=== PATIENT | female | born 1980 | race Caucasian/White ===

== ENCOUNTER 2020-03-31 11:27 | Emergency (ER) | payer MEDICAID, SELFPAY ==
[2020-03-31 11:35] VITALS: BP 121/79; PULSE 94; RESP 18; TEMP 37.1; O2SAT 100; BMI 23.0
[2020-03-31] MEDS: Famotidine 20 MG TABLET PO (14:25)
--- NOTE | 2020-03-31 14:48 | ED.ABDPAIN ---
HPI - Abdominal Pain General Chief Complaint: Abdominal Pain Stated Complaint: nausea,stomach pain,freq urination Time Seen by Provider: 03/31/20 14:12 Source: patient Mode of arrival: ambulatory Limitations: no limitations History of Present Illness HPI narrative: Patient is a 39-year-old female with no significant past medical history complaining of upper abdominal pain and pressure with some nausea for 1 day. States she has been burping since she got to the hospital and she feels a little bit better. She states she does have an appointment with GI already scheduled in 2 days, on 04/02. She states she has ?something in her gallbladder ?which she is getting followed up on. Denies history of testing for H pylori. Has some associated nausea but no vomiting. Eating and drinking normally but states she has a feeling of fullness after she eats, for a long period of time. Denies any heartburn type symptoms. Denies fevers. Denies constipation beyond her baseline, denies diarrhea. Patient also states she had COVID back in February but that completely resolved and then she was diagnosed with bronchitis 3 days ago, is currently taking a Z-Charles. States she feels better with her breathing and cough. Related Data Previous Rx's Medication Instructions Recorded metoclopramide HCl 5 mg PO .prior to meals #14 tab 03/31/20 MDD three times a day Allergies Allergy/AdvReac Type Severity Reaction Status Date / Time No Known Allergies Allergy Verified 03/31/20 14:12 Review of Systems Review of Systems Yes all other systems are reviewed and are negative Physical Exam Vital Signs: Vital Signs: Last Vital Signs Temp 98.7 F 03/31/20 11:35 Pulse 94 03/31/20 11:35 Resp 18 03/31/20 11:35 BP 121/79 03/31/20 11:35 Pulse Ox 100 03/31/20 11:35 Body Mass Index 23.0 Const: General: cooperative, healthy appearing, comfortable, no acute distress and well developed Nutritional Appearance: average body habitus and well nourished Orientation/consciousness: patient oriented x3 HENMT: Head: Yes normal to inspection Face and sinus: Yes normal facial exam Eyes: General: appearance normal, both eyes and all related structures Pupils: Equal, round and reactive pupils present EOM: EOMs intact bilaterally Neck: Neck: Yes normal visual inspection, Yes full ROM, Yes no meningeal signs, Yes trachea midline and Yes supple Resp: Effort & Inspection: normal respiratory effort and able to speak in complete sentences Auscultation: clear to auscultation bilaterally ( very slight wheeze b/l) Cardio: Rate: regular rate Rhythm: regular rhythm Heart sounds: normal S1 and S2 GI: Inspection: Yes normal to inspection Palpation (GI): Soft to palpation and nontender Auscultation: normal bowel sounds Skin: General skin exam: no rashes or lesions noted Neuro: General: patient oriented x3 and no meningeal signs Cranial nerves: Yes Equal, round and reactive pupils present Extrem: General: Yes normal to inspection Psych: Appearance: grossly normal Course Course Course Narrative: Patient is a 39-year-old female no significant past medical history presenting with upper abdominal pain and slight nausea x1 day. Patient states she had a history of something going on with her gallbladder so she does have a follow-up appointment with GI in 2 days. EKG was normal, physical exam was normal. Give patient GI cocktail (minus lidocaine at her request), patient states feeling better after the GI cocktail and burping multiple times. Will prescribe trial of Reglan and discussed follow-up with GI as patient should also have H pylori testing. MDM - Abdominal Pain Differential Diagnosis Differential diagnosis: Likely abdominal pain, acute appendicitis, constipation, gastritis, peptic ulcer disease and small bowel obstruction ECG Data Attestation: I personally reviewed and interpreted this ECG as follows: ECG interpretation date: 03/31/20 ECG interpretation time: 15:09 Interpretation: Normal sinus rhythm with sinus arrhythmia, no acute abnormalities Discharge Plan Discharge Clinical Impression: Gastroparesis Gastritis Qualifiers: Gastritis type: unspecified gastritis Chronicity: acute Gastritis bleeding: without bleeding Qualified Code(s): K29.00 - Acute gastritis without bleeding Patient Disposition: Home, Self-Care Instructions: Gastritis (ED) Prescriptions: New metoclopramide HCl 5 mg tablet 5 mg PO .prior to meals MDD three times a day Qty: 14 RF: 0 Referrals: Michelle Del Cid MD [Physician] - 2 days (for H. Pylori testing and, as scheduled GI workup for gallbladder issues) [facility] Past Medical History Medical History Anxiety delivery delivered Panic attack Social History Social History Advance Directives: No Advance Directives Information Provided: No
--- NOTE | 2020-03-31 14:51 | ECG_ITS ---
Test Reason : CHEST TIGHTNESS Blood Pressure : / mmHG Vent. Rate : 070 BPM Atrial Rate : 070 BPM P-R Int : 156 ms QRS Dur : 088 ms QT Int : 384 ms P-R-T Axes : 066 072 057 degrees QTc Int : 414 ms Normal sinus rhythm with sinus arrhythmia Normal ECG No previous ECGs available Referred By: Mariela Okeefe Electronically Signed By:MATT RAZO MD
== END 2020-03-31 15:25 | disposition home or self-care (01) ==
PROVIDERS: Emergency Provider Emergency Medicine Emergency Medical Services; PCP Nurse Practitioner Family
DX: K31.84 Gastroparesis (principal); K29.00 Acute gastritis without bleeding
CPT/HCPCS: 93005; 99283

== ENCOUNTER 2023-10-01 08:55 | Emergency (ER) | payer OTHER, SELFPAY ==
[2023-10-01 09:06] VITALS: BP 119/79; PULSE 93; RESP 19; TEMP 36.8; O2SAT 99; BMI 27.6
[2023-10-01 09:27] LABS: MANUAL DIFF FLAG NO
[2023-10-01 09:30] LABS: Basophils Percent Auto 0.4 % (0-2); Eosinophils Absolute Auto 0.1 X10*3/uL (0.0-0.4); Eosinophils Percent Auto 1.1 % (0-4); Hematocrit 38.8 % (37.0-47.0); Imm Gran Abs Auto 0.02 X10*3/uL (0.00-0.03); Imm Gran Pct Auto 0.2 % (0.0-0.4); Lymphocytes Absolute Auto 1.9 X10*3/uL (1.2-4.9); Lymphocytes Percent Auto 19.4 % (20-40); Mean Corpuscular HGB Conc 33.5 g/dl (31.0-35.0); Mean Corpuscular Hemoglobin 31.6 pg (27.0-33.0); Mean Corpuscular Volume 94.2 fL (80.0-98.0); Mean Platelet Volume 10.5 fL (9.4-12.3); Monocytes Absolute Auto 0.5 X10*3/uL (0.1-1.2); Monocytes Percent Auto 5.4 % (2-11); Neutrophils Absolute Auto 7.1 x10*3/uL (2.0-8.3); Neutrophils Percent Auto 73.5 % (45-73); Platelet Count 219 X10*3/uL (160-400); Red Blood Count 4.12 X10*6/uL (4.20-5.50); White Blood Count 9.7 X10*3/uL (4.8-10.8)
[2023-10-01 09:47] LABS: Alanine Aminotransferase 11 U/L (0-31); Alkaline Phosphatase 41 U/L (39-117); Anion Gap 11 (12-20); Aspartate Amino Transferase 11 U/L (5-31); Bilirubin Direct 0.1 mg/dL (0.0-0.5); Bilirubin Total 0.3 mg/dL (0.0-1.0); Blood Urea Nitrogen 9 mg/dL (9-16); Calcium 9.2 mg/dL (8.4-10.2); Carbon Dioxide 24 mmol/L (22-29); Chloride 110 mmol/L (96-108); Creatinine Clr Calc Pharmacy 99.4; Estimated Glomerular Filt Rate > 60; Glucose Random 94 mg/dL (60-115); Lipase 19 U/L (8-78); Sodium 141 mmol/L (135-145); Total Protein 6.5 g/dL (6.5-8.0)
[2023-10-01 09:59] LABS: IDNOW Serial# 08D9AD1C; Strep A Nucleic Acid Negative (Negative)
[2023-10-01 10:08] LABS: Influenza A PCR NEGATIVE (Negative); Influenza B PCR NEGATIVE (Negative); Resp Syncy Virus RNA Qual PCR NEGATIVE (Negative); SARS COV2 PCR INHOUSE NEGATIVE (Negative)
--- NOTE | 2023-10-01 10:56 | ED_ITS ---
HPI - Nausea/Vomiting/Diarrhea General Chief complaint: Nausea/Vomiting/Diarrhea Stated complaint: vomiting neck pain stiffness Time Seen by Provider: 10/01/23 10:18 Source: patient Mode of arrival: ambulatory Limitations: no limitations History of Present Illness ED Provider: BENNETT LAUREANO Narrative: 43 yo female with recent strep throat notes she completed PCN for it still has some sore throat this AM vomited but now is drinking water. She denies any food exposures, diarrhea, abdominal pain, sick contacts MD elicited complaint: nausea and vomiting Onset (ago): day(s) (today 8am) Description of vomiting: food contents and watery Associated nausea: Yes Associated abdominal pain: No Location of pain: none Radiation: diffuse Severity: mild Exacerbating factors: eating Relieving factors: none Context: recent antibiotic use Associated symptoms: other (sore throat) Related Data Previous Rx's ?Medication ?Instructions ?Recorded metoclopramide HCl 5 mg tablet 5 mg PO .prior to meals #14 tabs 03/31/20 amoxicillin 875 mg-potassium 1 tab PO BID #14 tabs 10/01/23 clavulanate 125 mg tablet ondansetron 4 mg disintegrating 4 mg PO Q8H PRN nausea and 10/01/23 tablet vomiting #20 tabs Allergies Allergy/AdvReac Type Severity Reaction Status Date / Time acetaminophen [From Percocet] Allergy Rash Verified 10/01/23 09:09 codeine Allergy Unknown Verified 10/01/23 09:09 oxycodone [From Percocet] Allergy Rash Verified 10/01/23 09:09 sulfamethoxazole Allergy Unknown Verified 10/01/23 09:09 [From Bactrim] trimethoprim [From Bactrim] Allergy Unknown Verified 10/01/23 09:09 Review of Systems 2 Review of Systems: Constitutional : No Fever, No Chills, No Fatigue ENT/Mouth : pos sore throat, No Rhinorrhea Eyes: No Eye Pain, No Swelling, No Redness Cardiovascular : No Chest Pain, No SOB, No Dyspnea on Exertion Respiratory : No Cough, No Sputum Gastrointestinal : pos Nausea, pos Vomiting, No Diarrhea, No abdominal Pain Genitourinary : No Dysuria, No Urinary Frequency, No Hematuria, Musculoskeletal : No joint pain, No Myalgias, No Joint Swelling Skin : No Skin Lesions, No rash Neuro : No Weakness, No Numbness, No Dizziness, no Headache All other systems reviewed and are negative Gastrointestinal: Gastrointestinal: Reports nausea PMFSH Past Medical History Attestation statement: The following information was validated with the patient. Source: old records reviewed Medical History delivery delivered Panic attack Anxiety Social History Social History (Updated 10/01/23 @ 11:05 by Alison Gonzalez DO) Patient Tobacco Use Status: Tobacco use Unknown Advance Directives: No Advance Directives Information Provided: Yes Physical Exam 2 Vital Signs: Vital Signs: Last Vital Signs Temp 98.3 F 10/01/23 11:37 Pulse 93 10/01/23 11:37 Resp 19 10/01/23 11:37 BP 119/79 10/01/23 11:37 Pulse Ox 99 10/01/23 11:37 O2 Del Method Room Air 10/01/23 11:37 BMI result Body Mass Index 27.6 Appearance: Alert. Oriented X3. No acute distress. Eyes: Pupils equal, round and reactive to light. ENT: Pharynx erythema still with some patches tonsils symmetric uvula is midline Neck: Normal inspection. Neck supple. CVS: Normal heart rate and rhythm. Pulses normal. Respiratory: No respiratory distress. Breath sounds normal. Abdomen: Soft and nontender. Skin: Skin warm and dry. Normal skin color. Normal skin turgor. Extremities: No lower extremity edema. No calf ttp Neuro: Oriented X 3. No motor deficit. No sensory deficit. Medications Administered Discontinued Medications Generic Name Dose Route Start Last Admin Trade Name Freq PRN Reason Stop Dose Admin Cyclobenzaprine HCl 10 mg 10/01/23 10:48 10/01/23 10:54 Cyclobenzaprine Hcl 10 Mg Tablet PO 10/01/23 10:49 Not Given ONCE ONE Ondansetron HCl 4 mg 10/01/23 10:48 10/01/23 11:01 Ondansetron Odt 4 Mg Tab.Rapdis TRANSLINGU 10/01/23 10:49 4 mg ONCE ONE Administration Medical Decision Making Medical Decision Making MDM Narrative: 43 yo female no sig PMH just finished PCN for strep throat reports she had vomiting this AM and still has sore throat - denies fevers, completed all therapy. She does not want IVF, she has no meningeal signs her strep is negative and her labs are stable. At this time I offered fluids, CT of the neck but she declines will put in oral medications and DC home, given appearance of the next tonsils will repeat abx start on cephalexin Differential Diagnosis Differential Diagnoses: The differential diagnosis associated with the presentation includes REACT[employer]ELING [employer]PER[employer]OR, strep, n/v Admission/Observation Consideration of admission/observation: Escalation of care including admission/observation considered refuses fluids and further workup Lab Data MDM Lab Attestation statement: I reviewed the patient's lab results. 10/01/23 09:19 10/01/23 09:19 Labs: Lab Results 10/01/23 Range/Units 09:19 WBC 9.7 (4.8-10.8) X10*3/uL RBC 4.12 L (4.20-5.50) X10*6/uL Hgb 13.0 (12.0-16.0) g/dl Hct 38.8 (37.0-47.0) % MCV 94.2 (80.0-98.0) fL MCH 31.6 (27.0-33.0) pg MCHC 33.5 (31.0-35.0) g/dl RDW 13.0 (11.0-16.0) % Plt Count 219 (160-400) X10*3/uL MPV 10.5 (9.4-12.3) fL Immature Gran % (Auto) 0.2 (0.0-0.4) % Neut % (Auto) 73.5 H (45-73) % Lymph % (Auto) 19.4 L (20-40) % Turner % (Auto) 5.4 (2-11) % Eos % (Auto) 1.1 (0-4) % Baso % (Auto) 0.4 (0-2) % Lymph # (Auto) 1.9 (1.2-4.9) X10*3/uL Turner # (Auto) 0.5 (0.1-1.2) X10*3/uL Eos # (Auto) 0.1 (0.0-0.4) X10*3/uL Baso # (Auto) 0.0 (0.0-0.2) X10*3/uL Abs Immat Gran (auto) 0.02 (0.00-0.03) X10*3/uL Absolute Neuts (auto) 7.1 (2.0-8.3) x10*3/uL Absolute Nucleated RBC 0.000 (0.0-0.012) X10*3/uL Nucleated RBC % (auto) 0.0 (0.0-0.2) /100WBC Sodium 141 (135-145) mmol/L Potassium 4.0 (3.3-5.1) mmol/L Chloride 110 H (96-108) mmol/L Carbon Dioxide 24 (22-29) mmol/L Anion Gap 11 L (12-20) BUN 9 (9-16) mg/dL Creatinine 0.70 (0.5-1.4) mg/dL Estim Creat Clear Calc 99.4 Estimated GFR > 60 Random Glucose 94 (60-115) mg/dL Calcium 9.2 (8.4-10.2) mg/dL Total Bilirubin 0.3 (0.0-1.0) mg/dL Direct Bilirubin 0.1 (0.0-0.5) mg/dL AST 11 (5-31) U/L ALT 11 (0-31) U/L Alkaline Phosphatase 41 (39-117) U/L Total Protein 6.5 (6.5-8.0) g/dL Albumin 4.0 (3.5-5.0) g/dL Lipase 19 (8-78) U/L Influenza Type A (PCR) NEGATIVE (Negative) Influenza Type B (PCR) NEGATIVE (Negative) RSV RNA Qual (PCR) NEGATIVE (Negative) SARS-CoV-2 RNA (RT-PCR) NEGATIVE (Negative) S. pyogenes GrpA HARINDER Negative (Negative) External Record Review External record reviewed: Inpatient record Tests considered The following testing was considered but not selected: CT scan but patient refused Prescription Management I considered prescription management with: Antibiotic and Other Discharge Plan Discharge Clinical Impression: Nausea & vomiting Qualifiers: Vomiting type: unspecified Qualified Code(s): R11.2 - Nausea with vomiting, unspecified Pharyngitis Qualifiers: Pharyngitis/tonsillitis etiology: unspecified etiology Qualified Code(s): J02.9 - Acute pharyngitis, unspecified Patient Disposition: Home, Self-Care Instructions: Pharyngitis (ED), Acute Nausea and Vomiting (ED) Additional Instructions: return for worsening symptoms or concerns you declined IVF and CT scan of the neck if you change your mind you can return your strep test was negativ at this time stay hydrated, rest you still have swelling and patches on the tonsils will repeat antibiotics On a cephalosporin?antibiotic, softer bowel movements are to be expected. Call your provider if you move your bowels more than 4 times a day, your bowel movements are almost all liquid, or you get a rash.?? Prescriptions: New ondansetron 4 mg tablet,disintegrating 4 mg PO Q8H PRN (Reason: nausea and vomiting) Qty: 20 0RF amoxicillin-pot clavulanate 875-125 mg tablet 1 tab PO BID Qty: 14 0RF No Action metoclopramide HCl 5 mg tablet 5 mg PO .prior to meals MDD three times a day Qty: 14 0RF Stand Alone Forms: Work/School Release Interventions: ED Discharge Assessment Last Done: 10/01/23 11:37 Discharge Date/Time: 10/01/23 11:38 Print Language: Persian
[2023-10-01] MEDS: Ondansetron ODT 4 MG TAB.RAPDIS TRANSLINGU (11:01)
[2023-10-01 11:37] VITALS: BP 119/79; PULSE 93; RESP 19; TEMP 36.8; O2SAT 99
== END 2023-10-01 11:38 | disposition home or self-care (01) ==
PROVIDERS: Emergency Provider Emergency Medicine; PCP Nurse Practitioner Family
DX: J02.9 Acute pharyngitis, unspecified (principal); R11.2 Nausea with vomiting, unspecified; Z03.818 Encounter for observation for suspected exposure to other biological agents ruled out; F41.9 Anxiety disorder, unspecified; Z79.899 Other long term (current) drug therapy
CPT/HCPCS: 0241U; 80048; 80076; 83690; 85025; 87651; 99282; 99283

== ENCOUNTER 2024-07-25 09:02 | Outpatient (REF) | payer OTHER, SELFPAY ==
--- NOTE | ~2024-07-25 | XR_ITS ---
CLINICAL HISTORY: ACUTE COUGH --- Additional Notes or Special Instructions: WO 2 view chest x-ray. Comparison: None Findings: The lungs are adequately expanded. No focal consolidation. No effusion or pneumothorax. Cardiac and mediastinal contours are within normal limits. No acute osseous abnormality Impression: No focal consolidation. This document has been electronically signed by: Nelson Katz MD on 07/25/2024 09:37:09
== END 2024-07-25 09:03 | disposition home or self-care (01) ==
LOC: HO.XRAY 09:02
PROVIDERS: Visit Provider Physician Assistant
DX: R05.1 Acute cough (principal)
CPT/HCPCS: 71046

== ENCOUNTER → 2024-07-25 09:10 | Outpatient (BNV) | payer OTHER, SELFPAY | PROVIDERS: Visit Provider Radiology Vascular & Interventional Radiology | DX: R05.1 Acute cough (principal) | CPT/HCPCS: 71046 ==

== ENCOUNTER 2024-08-23 06:19 | Emergency (ER) | payer OTHER, SELFPAY ==
[2024-08-23 06:24] VITALS: BP 117/70; PULSE 97; RESP 20; TEMP 36; O2SAT 99; BMI 27.5
--- NOTE | 2024-08-23 08:05 | ED_ITS ---
HPI - General Adult General Chief complaint: General Medical Stated complaint: thyroid pain Time Seen by Provider: 08/23/24 08:02 Source: patient Mode of arrival: ambulatory Limitations: no limitations History of Present Illness ED Provider: Celia Caputo PA-C Related Data Previous Rx's ?Medication ?Instructions ?Recorded metoclopramide HCl 5 mg tablet 5 mg PO .prior to meals #14 tabs 03/31/20 amoxicillin 875 mg-potassium 1 tab PO BID #14 tabs 10/01/23 clavulanate 125 mg tablet ondansetron 4 mg disintegrating 4 mg PO Q8H PRN nausea and 10/01/23 tablet vomiting #20 tabs Allergies Allergy/AdvReac Type Severity Reaction Status Date / Time acetaminophen [From Percocet] Allergy Rash Verified 08/23/24 06:25 codeine Allergy Unknown Verified 08/23/24 06:25 oxycodone [From Percocet] Allergy Rash Verified 08/23/24 06:25 sulfamethoxazole Allergy Unknown Verified 08/23/24 06:25 [From Bactrim] trimethoprim [From Bactrim] Allergy Unknown Verified 08/23/24 06:25 PMFSH Past Medical History Medical History delivery delivered Panic attack Anxiety Social History Social History (Updated 10/01/23 @ 11:05 by Alison Gonzalez DO) Patient Tobacco Use Status: Tobacco use Unknown Advance Directives: No Advance Directives Information Provided: Yes Physical Exam ED Vital Signs: Vital Signs - 24 hr 08/23/24 06:24 Temperature 96.8 F Pulse Rate 97 Respiratory Rate 20 Blood Pressure 117/70 Pulse Oximetry 99 Oxygen Delivery Method Room Air BMI result Body Mass Index 27.5 Discharge Plan Discharge Prescriptions: No Action metoclopramide HCl 5 mg tablet 5 mg PO .prior to meals MDD three times a day Qty: 14 0RF ondansetron 4 mg tablet,disintegrating 4 mg PO Q8H PRN (Reason: nausea and vomiting) Qty: 20 0RF amoxicillin-pot clavulanate 875-125 mg tablet 1 tab PO BID Qty: 14 0RF Print Language: Greek
== END 2024-08-23 08:26 | disposition left against medical advice (07) ==
PROVIDERS: Emergency Provider Emergency Medicine
DX: E06.9 Thyroiditis, unspecified (principal)
CPT/HCPCS: 99281

== ENCOUNTER 2024-11-13 12:52 | Emergency (ER) | payer OTHER, SELFPAY ==
--- NOTE | ~2024-11-13 | XR_ITS ---
CLINICAL HISTORY: cough, sOB Chest Radiographs, 2 views Comparison: 07/25/24 Findings: No cardiomegaly. Normal mediastinal contours. No pneumothorax. 1.3 cm left lower lung zone opacity seen only on the PA view is likely a prominent nipple shadow. No pleural effusion. Normal upper abdomen. No acute fracture. Impression: No acute findings. This document has been electronically signed by: Michelle Narayan MD on 11/13/2024 13:20:50
[2024-11-13 12:54] VITALS: BP 135/67; PULSE 95; RESP 16; TEMP 37.1; O2SAT 98; BMI 27.8
--- NOTE | 2024-11-13 12:55 | ECG_ITS ---
Test Reason : SOB Blood Pressure : */* mmHG Vent. Rate : 96 BPM Atrial Rate : 96 BPM P-R Int : 158 ms QRS Dur : 76 ms QT Int : 336 ms P-R-T Axes : 57 54 41 degrees QTcB Int : 424 ms Normal sinus rhythm Cannot rule out Anterior infarct , age undetermined Abnormal ECG When compared with ECG of 31-Mar-2020 15:03, No significant change was found Referred By: Celia Caputo Electronically Signed By: Armando Gonzalez
--- NOTE | 2024-11-13 12:55 | ED.GENADULT ---
HPI - General Adult General Chief complaint: Dyspnea Stated complaint: Sob Related Data Previous Rx's ?Medication ?Instructions ?Recorded metoclopramide HCl 5 mg tablet 5 mg PO .prior to meals #14 tabs 03/31/20 amoxicillin 875 mg-potassium 1 tab PO BID #14 tabs 10/01/23 clavulanate 125 mg tablet ondansetron 4 mg disintegrating 4 mg PO Q8H PRN nausea and 10/01/23 tablet vomiting #20 tabs Allergies Allergy/AdvReac Type Severity Reaction Status Date / Time acetaminophen (From Percocet) Allergy Rash Verified 11/13/24 12:57 codeine Allergy Unknown Verified 11/13/24 12:57 oxycodone (From Percocet) Allergy Rash Verified 11/13/24 12:57 sulfamethoxazole (From Allergy Unknown Verified 11/13/24 12:57 Bactrim) trimethoprim (From Bactrim) Allergy Unknown Verified 11/13/24 12:57 PMFSH Past Medical History Medical History delivery delivered Panic attack Anxiety Social History Social History (Updated 10/01/23 @ 11:05 by Alison Gonzalez DO) Patient Tobacco Use Status: Tobacco use Unknown Advance Directives: No Advance Directives Information Provided: No Do you have a plan to hurt others: No Plan Physical Exam ED Vital Signs: Vital Signs - 24 hr 11/13/24 12:54 Temperature 98.7 F Pulse Rate 95 Respiratory Rate 16 Blood Pressure 135/67 Pulse Oximetry 98 Oxygen Delivery Method Room Air BMI result Body Mass Index 27.8 Course Course Course Narrative: Rapid medical examination performed in triage by Celia Caputo PA-C. Patient is a 44 year old assigned female at presenting to the emergency department with chest tightness and shortness of breath. Detailed physical exam and review of systems are deferred to the associate professor of library media. EKG, imaging, and swabs ordered. Patient placed back in the waiting room pending room availability and results. Patient left without completing treatment. Patient's limited physical exam performed in triage showed a non-toxic individual, no acute distress. Patient left before myself or any of the other providers could review or explain any of the patient's results. Medical Decision Making Lab Data Labs: Lab Results 11/13/24 Range/Units 13:04 Influenza Type A (PCR) NEGATIVE (Negative) Influenza Type B (PCR) NEGATIVE (Negative) RSV RNA Qual (PCR) NEGATIVE (Negative) SARS-CoV-2 RNA (RT-PCR) NEGATIVE (Negative) Discharge Plan Discharge Clinical Impression: Shortness of breath Patient Disposition: Left W/O Completing Treatment Prescriptions: No Action metoclopramide HCl 5 mg tablet 5 mg PO .prior to meals MDD three times a day Qty: 14 0RF ondansetron 4 mg tablet,disintegrating 4 mg PO Q8H PRN (Reason: nausea and vomiting) Qty: 20 0RF amoxicillin-pot clavulanate 875-125 mg tablet 1 tab PO BID Qty: 14 0RF Discharge Date/Time: 11/13/24 15:27
[2024-11-13 13:46] LABS: Resp Syncy Virus RNA Qual PCR NEGATIVE (Negative); SARS COV2 PCR INHOUSE NEGATIVE (Negative)
--- NOTE | 2024-11-13 17:47 | PC.NURSE ---
Patient returned to dept at this time requesting results after leaving w/o completing txt. Spoke to barrel endshaker adjuster Lianna, patient would have to check back in for further work up. Spoke to patient in [place], informed her of nasal swab results & informed her she would have to check back in for a further work up. Patient declined, left dept w/ a steady gait.
== END 2024-11-13 15:27 | disposition left against medical advice (07) ==
PROVIDERS: Physician Assistant Medical; Emergency Provider Emergency Medicine; PCP Internal Medicine
DX: R06.02 Shortness of breath (principal); R94.31 Abnormal electrocardiogram [ECG] [EKG]; Z03.818 Encounter for observation for suspected exposure to other biological agents ruled out
CPT/HCPCS: 71046; 87637; 93005; 99283

== ENCOUNTER → 2024-11-13 12:55 | Outpatient (BNV) | payer OTHER, SELFPAY | PROVIDERS: Visit Provider Radiology Diagnostic Radiology | DX: R06.02 Shortness of breath (principal) | CPT/HCPCS: 71046 ==

== ENCOUNTER → 2024-11-13 12:55 | Outpatient (BNV) | payer OTHER, SELFPAY | PROVIDERS: Emergency Provider Emergency Medicine; PCP Internal Medicine; Visit Provider Internal Medicine Cardiovascular Disease | DX: R94.31 Abnormal electrocardiogram [ECG] [EKG] (principal); R06.02 Shortness of breath | CPT/HCPCS: 93010 ==

== ENCOUNTER 2025-03-20 08:39 | Emergency (ER) | payer OTHER, SELFPAY ==
--- NOTE | ~2025-03-20 | XR_ITS ---
EXAMINATION: XR CHEST CLINICAL INFORMATION: chest pain COMPARISON: Previous chest x-ray November 2024 TECHNIQUE: 2 views of the chest were obtained. FINDINGS: No significant abnormality is noted involving the heart, lungs, mediastinum, bony thorax or soft tissues. XR/XR chest 2V IMPRESSION: Unremarkable examination. Electronically signed by: Era Díaz MD 03/20/2025 10:45 AM [facility]
--- NOTE | 2025-03-20 08:40 | ECG_ITS ---
Test Reason : chest pain Blood Pressure : */* mmHG Vent. Rate : 85 BPM Atrial Rate : 85 BPM P-R Int : 166 ms QRS Dur : 86 ms QT Int : 364 ms P-R-T Axes : 69 56 53 degrees QTcB Int : 433 ms Normal sinus rhythm Normal ECG When compared with ECG of 13-Nov-2024 12:57, No significant change was found Referred By: Generic ED Physician Electronically Signed By: Armando Gonzalez
[2025-03-20 09:06] VITALS: BP 128/72; PULSE 76; RESP 18; TEMP 36.3; O2SAT 98; BMI 29.2
[2025-03-20 09:22] LABS: MANUAL DIFF FLAG NO
[2025-03-20 09:27] LABS: Hematocrit 37.2 % (37.0-47.0); Hemoglobin 12.4 g/dl (12.0-16.0); Imm Gran Abs Auto 0.01 X10*3/uL (0.00-0.03); Imm Gran Pct Auto 0.2 % (0.0-0.4); Lymphocytes Absolute Auto 1.6 X10*3/uL (1.2-4.9); Mean Corpuscular HGB Conc 33.3 g/dl (31.0-35.0); Mean Corpuscular Hemoglobin 31.4 pg (27.0-33.0); Mean Corpuscular Volume 94.2 fL (80.0-98.0); NRBC Abs Auto 0.000 X10*3/uL (0.0-0.012); NRBC Pct Auto 0.0 /100WBC (0.0-0.2); Platelet Count 216 X10*3/uL (160-400); Red Blood Count 3.95 X10*6/uL (4.20-5.50); White Blood Count 5.9 X10*3/uL (4.8-10.8)
[2025-03-20 09:40] LABS: Alanine Aminotransferase 13 U/L (0-31); Albumin Level 4.2 g/dL (3.5-5.0); Alkaline Phosphatase 44 U/L (39-117); Anion Gap 8 (12-20); Aspartate Amino Transferase 15 U/L (5-31); Blood Urea Nitrogen 11 mg/dL (9-16); Calcium 8.9 mg/dL (8.4-10.2); Carbon Dioxide 27 mmol/L (22-29); Chloride 110 mmol/L (96-108); Creatinine Clr Calc Pharmacy 94.5; Estimated Glomerular Filt Rate > 60; Potassium 4.2 mmol/L (3.3-5.1); Sodium 141 mmol/L (135-145); Total Protein 6.4 g/dL (6.5-8.0)
[2025-03-20 09:46] LABS: Troponin-I High Sensitivity < 2.7 ng/L (<3.5-17.0)
[2025-03-20 10:46] LABS: Lipase 20 U/L (8-78)
[2025-03-20 11:10] VITALS: BP 132/82; PULSE 86; RESP 20; TEMP 37.2; O2SAT 96
--- NOTE | 2025-03-20 11:13 | ED_ITS ---
HPI - Chest Pain General Chief Complaint: Chest Pain Stated Complaint: CP Time Seen by Provider: 03/20/25 10:51 Source: patient Mode of arrival: ambulatory Limitations: no limitations History of Present Illness ED Provider: BENNETT LAUREANO narrative: 44-year-old female past medical history of untreated acid reflux. She is not on any medications at home although she takes p.r.n. Tums. She notes she has been trying to treat herself at home and has never seen a GI doctor. She does admit to taking Motrin regularly for her migraines. She is on any hormones. She has not had any recent travel or procedures. She states that this has been getting worse it is not responding to Tums or Pepto. She has no fevers, black stools, bloody stools. Pain is worse lying down and eating she also notes that she feels like sometimes the food does not pass. She denies any prior GI workup. MD complaint: chest pain Pertinent past history: other Onset (ago): day(s) (2) Timing of current episode: episodic Prior episodes: Yes Onset: during rest Pain location: substernal Pain radiation: none Severity: moderate Quality: aching and burning Relieving factors: nothing Exacerbating factors: eating Context: other Associated symptoms: nausea and vomiting Treatment prior to arrival: other Related Data Previous Rx's ?Medication ?Instructions ?Recorded metoclopramide HCl 5 mg tablet 5 mg PO .prior to meals #14 tabs 03/31/20 amoxicillin 875 mg-potassium 1 tab PO BID #14 tabs clavulanate 125 mg tablet ondansetron 4 mg disintegrating 4 mg PO Q8H PRN nausea and 10/01/23 tablet vomiting #20 tabs cyclobenzaprine 10 mg tablet 10 mg PO TID PRN muscle s pasm #20 03/20/25 tabs omeprazole 20 mg capsule,delayed 20 mg PO BID #60 caps 03/20/25 release ondansetron 4 mg disintegrating 4 mg PO Q8H PRN nausea and 03/20/25 tablet vomiting #20 tabs sucralfate 100 mg/mL oral 1 g (10 mL) PO BID 10 days # 200 mL 03/20/25 suspension Allergies Allergy/AdvReac Type Severity Reaction Status Date / Time acetaminophen (From Percocet) Allergy Rash Verified 03/20/25 09:09 codeine Allergy Unknown Verified 03/20/25 09:09 oxycodone (From Percocet) Allergy Rash Verified 03/20/25 09:09 sulfamethoxazole (From Allergy Unknown Verified 03/20/25 09:09 Bactrim) trimethoprim (From Bactrim) Allergy Unknown Verified 03/20/25 09:09 Review of Systems 2 Review of Systems: Constitutional : No Weight loss, No Fever, No Chills ENT/Mouth : No sore throat, No Rhinorrhea Eyes: No Eye Pain, No Swelling Cardiovascular : pos Chest Pain, no SOB Respiratory : No Cough, No Sputum Gastrointestinal : no Nausea, No Vomiting, No Diarrhea, No abdominal Pain, No Hematochezia, No Melena Genitourinary : No Dysuria, No Urinary Frequency Musculoskeletal : No joint pain, No Myalgias, No Joint Swelling Skin : No Skin Lesions, No rash Neuro : No Weakness, No Numbness, No Dizziness, No Headache All other systems reviewed and are negative [facility] Past Medical History Attestation statement: The following information was validated with the patient. Source: old records reviewed Medical History delivery delivered Panic attack Anxiety Social History Social History Patient Tobacco Use Status: Tobacco use Unknown Physical Exam 2 Vital Signs: Vital Signs: Last Vital Signs Temp 98.9 F 03/20/25 11:23 Pulse 86 03/20/25 11:23 Resp 20 03/20/25 11:23 BP 132/82 03/20/25 11:23 Pulse Ox 96 03/20/25 11:23 O2 Del Method Room Air 03/20/25 11:23 BMI result Body Mass Index 29.2 Appearance: Alert. Oriented X3. No acute distress. Eyes: Pupils equal, round and reactive to light. ENT: Pharynx normal. Neck: Normal inspection. Neck supple. CVS: Normal heart rate and rhythm. Pulses normal. Respiratory: No respiratory distress. Breath sounds normal. Abdomen: Soft and nontender. Skin: Skin warm and dry. Normal skin color. Normal skin turgor. Extremities: No lower extremity edema. No calf ttp Neuro: Oriented X 3. No motor deficit. No sensory deficit. CN2-12 intact Medications Administered Discontinued Medications Generic Name Dose Route Start Last Admin Trade Name Jose M PRN Reason Stop Dose Admin Al Hydroxide/Mg Hydroxide 15 ml 03/20/25 11:12 03/20/25 11:16 Magnesium Hydrox/Alum Hydrox 30 Ml Oral.Susp PO 03/20/25 11:13 15 ml ONCE ONE Administration Lidocaine HCl 15 ml 03/20/25 11:12 03/20/25 11:17 Lidocaine Hcl Viscous 2 % 15 Ml Solution MUCOUS MEM 03/20/25 11:13 15 ml ONCE ONE Administration Ondansetron HCl 4 mg 03/20/25 11:12 03/20/25 11:16 Ondansetron Odt 4 Mg Tab.Rapdis TRANSLINGU 03/20/25 11:13 Not Given ONCE ONE Medical Decision Making Medical Decision Making [facility] Narrative: 44 yo female with no sig PMH other than migraines who does take motrin frequently here with atypical burning chest pain but no associated fevers, bloody stools, black stools. Her abdomen is benign. She is PERC negative. She will need labs, EKG, CXR. I plan on starting her on PPI and carafate. She was given precautions to return. She has no pain to suggest biliary colic. She has no hx of CAD and she has no risk factors for VTE. Differential Diagnosis Differential Diagnoses: The differential diagnosis associated with the presentation includes Gastritis, GERD, peptic ulcer disease Admission/Observation Consideration of admission/observation: Escalation of care including admission/observation considered Her abdominal exam is benign, she has stable vital signs, she has reassuring labs. Lab Data [facility] Lab Attestation statement: I reviewed the patient's lab results. 03/20/25 09:18 03/20/25 09:18 Labs: Lab Results 03/20/25 03/20/25 Range/Units 09:18 10:31 WBC 5.9 (4.8-10.8) X10*3/uL RBC 3.95 L (4.20-5.50) X10*6/uL Hgb 12.4 (12.0-16.0) g/dl Hct 37.2 (37.0-47.0) % MCV 94.2 (80.0-98.0) fL MCH 31.4 (27.0-33.0) pg MCHC 33.3 (31.0-35.0) g/dl RDW 12.7 (11.0-16.0) % Plt Count 216 (160-400) X10*3/uL MPV 10.2 (9.4-12.3) fL Immature Gran % (Auto) 0.2 (0.0-0.4) % Neut % (Auto) 65.7 (45-73) % Lymph % (Auto) 26.1 (20-40) % [place] % (Auto) 5.1 (2-11) % Eos % (Auto) 2.2 (0-4) % Baso % (Auto) 0.7 (0-2) % Lymph # (Auto) 1.6 (1.2-4.9) X10*3/uL [place] # (Auto) 0.3 (0.1-1.2) X10*3/uL Eos # (Auto) 0.1 (0.0-0.4) X10*3/uL Baso # (Auto) 0.0 (0.0-0.2) X10*3/uL Abs Immat Gran (auto) 0.01 (0.00-0.03) X10*3/uL Absolute Neuts (auto) 3.9 (2.0-8.3) x10*3/uL Absolute Nucleated RBC 0.000 (0.0-0.012) X10*3/uL Nucleated RBC % (auto) 0.0 (0.0-0.2) /100WBC Sodium 141 (135-145) mmol/L Potassium 4.2 (3.3-5.1) mmol/L Chloride 110 H (96-108) mmol/L Carbon Dioxide 27 (22-29) mmol/L Anion Gap 8 L (12-20) BUN 11 (9-16) mg/dL Creatinine 0.72 (0.5-1.4) mg/dL Estim Creat Clear Calc 94.5 Estimated GFR > 60 Random Glucose 98 (60-115) mg/dL Calcium 8.9 (8.4-10.2) mg/dL Total Bilirubin 0.2 (0.0-1.0) mg/dL AST 15 (5-31) U/L ALT 13 (0-31) U/L Alkaline Phosphatase 44 (39-117) U/L Troponin I High Sens < 2.7 (<3.5-17.0) ng/L Total Protein 6.4 L (6.5-8.0) g/dL Albumin 4.2 (3.5-5.0) g/dL Lipase 20 (8-78) U/L Influenza Type A (PCR) NEGATIVE (Negative) Influenza Type B (PCR) NEGATIVE (Negative) RSV RNA Qual (PCR) NEGATIVE (Negative) SARS-CoV-2 RNA (RT-PCR) NEGATIVE (Negative) Independent Interpretation I performed an independent interpretation of an: EKG and Plain X-Ray (normal ) Interpretation: Rate: 85 Rhythm: NSR [place]: norrmal Normal P waves. Normal TAMI. Normal QRS complex. ST T wave : normal no RONEL qTC: 433 prior studies: no acute ischemia The study has been interpreted contemporaneously by me. . Radiology Impression Discussion of test interpretation with radiology: I have reviewed the radiologist's reading. External Record Review External record reviewed: Outpatient record Prescription Management I considered prescription management with: Other Discharge Plan Discharge Clinical Impression: Atypical chest pain Gastritis Qualifiers: Gastritis type: unspecified gastritis Chronicity: acute Gastritis bleeding: w ithout bleeding Qualified Code(s): K29.00 - Acute gastritis without bleeding Patient Disposition: Home, Self-Care Instructions: Chest Pain (ED), Gastritis (ED), Diet for Stomach Ulcers and Gastritis (ED) Additional Instructions: you continues to take Tums as needed you were no longer allowed to take Motrin but Tylenol is okay you need to eat a bland diet and avoid spicy, greasy, fatty foods. Your labs and EKG were reassuring Please call the GI doctor today Return for any worsening symptoms, fever, black or bloody stools, worsening pain or any other concerns Prescriptions: New omeprazole 20 mg capsule,delayed release(DR/EC) 20 mg PO BID Qty: 60 2RF sucralfate 100 mg/mL suspension 1 g PO BID 10 Days Qty: 200 0RF ondansetron 4 mg tablet,disintegrating 4 mg PO Q8H PRN (Reason: nausea and vomiting) Qty: 20 0RF cyclobenzaprine 10 mg tablet 10 mg PO TID PRN (Reason: muscle spasm) Qty: 20 0RF No Action metoclopramide HCl 5 mg tablet 5 mg PO .prior to meals MDD three times a day Qty: 14 0RF ondansetron 4 mg tablet,disintegrating 4 mg PO Q8H PRN (Reason: nausea and vomiting) Qty: 20 0RF amoxicillin-pot clavulanate 875-125 mg tablet 1 tab PO BID Qty: 14 0RF Referrals: [facility] [Provider Group, Gastroenterology] Interventions: ED Discharge Assessment Last Done: 03/20/25 11:23 Discharge Date/Time: 03/20/25 11:24 Print Language: Upper Sorbian
[2025-03-20 11:14] LABS: Resp Syncy Virus RNA Qual PCR NEGATIVE (Negative); SARS COV2 PCR INHOUSE NEGATIVE (Negative)
[2025-03-20] MEDS: Magnesium Hydrox/Alum Hydrox 30 ML ORAL.SUSP 15 ML PO (11:16)
[2025-03-20] MEDS: Lidocaine HCl Viscous 2 % 15 ML SOLUTION MUCOUS MEM (11:17)
[2025-03-20 11:23] VITALS: BP 132/82; PULSE 86; RESP 20; TEMP 37.2; O2SAT 96
== END 2025-03-20 11:24 | disposition home or self-care (01) ==
PROVIDERS: Physician Assistant Medical; Emergency Provider Emergency Medicine; PCP Internal Medicine
DX: R07.89 Other chest pain (principal); K29.00 Acute gastritis without bleeding; Z03.818 Encounter for observation for suspected exposure to other biological agents ruled out
CPT/HCPCS: 36415; 71046; 80053; 83690; 84484; 85025; 87637; 93005; 99283

== ENCOUNTER → 2025-03-20 08:40 | Outpatient (BNV) | payer OTHER, SELFPAY | PROVIDERS: Emergency Provider Emergency Medicine; PCP Internal Medicine; Visit Provider Internal Medicine Cardiovascular Disease | DX: R07.9 Chest pain, unspecified (principal) | CPT/HCPCS: 93010 ==

== ENCOUNTER → 2025-03-20 10:27 | Outpatient (BNV) | payer OTHER, SELFPAY | PROVIDERS: Emergency Provider Emergency Medicine; PCP Internal Medicine; Visit Provider Radiology Diagnostic Radiology | DX: R07.9 Chest pain, unspecified (principal) | CPT/HCPCS: 71046 ==